=== PATIENT | male | born 1965 | race Caucasian/White ===

== ENCOUNTER 2016-08-28 05:54 | Observation (INO) | payer BC ==
[2016-08-25 09:23] LABS: BASOPHILS 0.3 %; BASOPHILS ABSOLUTE 0.03 10/3/uL (0.0-0.16); EOSINOPHILS 2.4 %; EOSINOPHILS ABSOLUTE 0.25 10/3/uL (0.0-0.53); HEMATOCRIT 43.7 % (40.0-51.0); HEMOGLOBIN 14.5 g/dL (13.6-17.8); IMMATURE GRANULOCYTES 0.4 %; IMMATURE GRANULOCYTES ABSOLUTE 0.04 10/3/uL (0.0-0.11); LYMPHOCYTES 30.3 %; LYMPHOCYTES ABSOLUTE 3.17 10/3/uL (0.67-4.30); MEAN CORPUS HGB CONC 33.2 g/dL (32.0-36.0); MEAN CORPUSCULAR HEMOGLOB 29.7 pg (26.0-34.0); MEAN CORPUSCULAR VOLUME 89.4 fL (80-100); MEAN PLATELET VOLUME 9.9 fL (9.2-13.0); MONOCYTES 6.6 %; MONOCYTES ABSOLUTE 0.69 10/3/uL (0.21-1.20); NEUTROPHILS ABSOLUTE 6.29 10/3/uL (2.02-8.40); PLATELET COUNT 244 10/3/uL (150-400); RBC DISTRIBUTION WIDTH 13.3 % (12.0-16.0); RED CELL COUNT 4.89 10/6/uL (4.7-6.1); WHITE BLOOD CELLS 10.5 10/3/uL (4.5-10.5)
[2016-08-25 09:26] LABS: MANUAL DIFF NO %
[2016-08-25 09:29] LABS: PARTIAL THROMBO TIME 24.1 SEC (22.5-37.2)
[2016-08-25 09:39] LABS: BUN (BLOOD UREA NITROGEN) 17 MG/DL (6-23); CALCIUM, SERUM 8.9 MG/DL (8.5-10.4); CHLORIDE, SERUM 105 MMOL/L (96-112); CO2 (CARBON DIOXIDE) 27 MMOL/L (24-34); CREATININE 0.85 MG/DL (0.70-1.30); GFR AFRICAN AMERICAN 116 ML/MIN (>=60); GFR NON AFRICAN AMERICAN 100 ML/MIN (>=60); GLUCOSE, SERUM 105 MG/DL (60-99); POTASSIUM, SERUM 4.9 MMOL/L (3.5-5.3); SODIUM, SERUM 140 MMOL/L (135-148)
--- NOTE | ~2016-08-28 | OP ---
Record Of Operation [facility] [address] [place]. [address] NAME: JANUARY PHAM : 63 STATUS : REG [facility]#: [id number] AGE: 51 ADM/REG DATE : 08/28/16 MR#: [id number] REPORT SERV DATE: 08/28/16 DICTATED BY: SHEY ANGEL DATE: 08/28/16 REPORT STATUS : Draft TRANSCRIBED BY: MODL DATE: 08/28/16 DATE OF PROCEDURE: 08/28/2016 PREOPERATIVE DIAGNOSIS: Severe obstructive sleep apnea syndrome. POSTOPERATIVE DIAGNOSIS: Severe obstructive sleep apnea syndrome. PROCEDURE PERFORMED: 1. Uvulopalatopharyngoplasty. 2. Tonsillectomy. 3. Septoplasty. 4. Bilateral inferior turbinate reduction. SURGEON: Shey Angel M.D. HAND CLOTH FOLDER: None. ANESTHESIA: General. COMPLICATIONS: None. CONDITION: Stable to recovery. INDICATIONS: A 51-year-old male with severe obstructive sleep apnea syndrome, refractory and intolerant to CPAP therapy. Risks, benefits, and alternatives of the uvulopalatopharyngoplasty with septoplasty and tonsillectomy were explained and he agreed to proceed. PROCEDURE IN DETAIL: The patient was identified in preoperative holding, taken back to the operating room, and placed supine on the operating room table. General anesthesia was established. A time-out was called. The patient and procedure were confirmed. Afrin- soaked pledgets were placed in the inferior middle meatus of the nose and the table were turned for tonsillectomy and palatoplasty. He was prepped and draped in the standard fashion for the procedure. Initial tonsillectomy was performed by grasping the right tonsil retracting it medially. Needle-tip cautery was used to excise the tonsil from the pharyngeal constrictor, achieving hemostasis along the way and leaving mucosal edges at the anterior and posterior edges of the tonsil fossa for closure. The uvula was transected at its base and the left tonsil was excised in a similar fashion. There was significant redundant lateral pharyngeal soft mucosal membrane that was easily advanced to the anterior tonsillar pillar edge with minimal tension. This tightened the lateral pharynx and we came around using 3-0 interrupted chromic sutures due to palatoplasty suturing the posterior and anterior tonsillar pillars and also the anterior and posterior mucosal membrane of the soft palate at the root of the uvula. He had still redundant tissue enough to have it a gentle pressure with the soft palate to the posterior pharynx. When the Irish-Jeremiah mouth gag was relaxed to his oropharynx, there was no bleeding. The anterior tonsillar pillars had been injected prior to the procedure with 1 mL of 1% lidocaine with 1:100,000 epinephrine Record Of Operation [facility] [id number] [place]. [address] NAME: JANUARY PHAM : 63 [place]US : [place] [facility] [place] [id number] AGE: 51 ADM/REG DATE : 08/28/16 MR#: [id number] REPORT SERV DATE: 08/28/16 DICTATED BY: SHEY ANGEL DATE: 08/28/16 REPORT STATUS : Draft TRANSCRIBED BY: NILS DATE: 08/28/16 bilaterally. Septoplasty and turbinate reduction were then performed. Hemitransfixion incision was made on the right side of the nose. Submucoperichondrial envelopes were elevated along the floor of the nose on the left side where there was a large left cartilaginous and bony septal deviation. The right side had no deviations and the mucoperichondrial envelope was entered on the right side 1 cm posterior to the caudal septum as we used a septal knife to cut through the septal cartilage to access the contralateral mucoperichondrial envelope. This envelope was elevated with a [place] elevator. A swivel knife was used to take a section of the quadrangular cartilage out for exposure and then the lower aspect of the cartilage interface and with the maxillary crest and bone on the left side were addressed with a combination of Kerr elevator, Izaguirre elevators, César forceps, and osteotome. We were able to remove the septal spur and cartilaginous deviations. There was additional bony deviation more posteriorly at the level of the middle meatal region. This was excised with undermining and a César forceps and a [place] and a [place] elevator. There was a horizontal perforation on the left septum mucosal membrane from the leading edge of both of the sharp septal spur. These were able to be reapproximated under no tension as we placed the Stern splint, they fell back into normal anatomic position. I did morselize portion of the quadrangular cartilage and replaced it adjacent to the perforation on the left mucoperichondrial envelope. The right mucoperichondrial envelope stayed intact throughout the entire case. Throughout the case, Afrin-soaked pledgets and adrenaline pledgets were used for hemostasis. These were counted at the end of the case and the counts were correct. This hemitransfixion incision was closed with 4-0 chromic suture. Three interrupted stitches. I then performed inferior turbinate reduction. Inferior turbinate reduction was performed at the posterior mid and anterior 3rd of the right inferior turbinate and it was approximately 15 seconds per location on a setting of 6. The left inferior turbinate mainly had the mid and anterior aspects coblated and this was after injection with sterile saline as the inferior turbinate was quite decongested and atrophic. At the end of the case, Stern splints were placed after coating them in Bactroban and they were secured through the columella with 3-0 silk suture. The patient was then handed to Anesthesia for extubation and return to recovery. There were no complications during the case. PH/MODL Shey Angel M.D. / [id number] CC: Shey Angel M.D. Record Of Operation [address] [address] NAME: JANUARY PHAM : 63 STATUS : REG [facility]#: [id number] AGE: 51 ADM/REG DATE : 08/28/16 MR#: [id number] REPORT SERV DATE: 08/28/16 DICTATED BY: SHEY ANGEL DATE: 08/28/16 REPORT STATUS : Draft TRANSCRIBED BY: MODL DATE: 08/28/16 Hardeep Pedersen M.D.
[~2016-08-28 05:54] MED LIST: ADVIL PO; CADUET10 MG/40 M PO; LOTREL1 CA5 PO; NASONEX NAS; NEXIUM40 PO
[2016-08-29] MEDS ORDERED: REST15 PO (14:10)
[2016-08-29] MEDS ORDERED: HYCET 7.5 MG-3473 ML PO (14:11)
[2016-08-29] MEDS ORDERED: ZOFRAN4 PO (14:11)
[2016-08-29] MEDS ORDERED: OCEAN NAS (14:11)
== END 2016-08-29 14:43 | disposition home or self-care (01) ==
LOC: SDC 05:54 → 4SO 14:26
PROVIDERS: Specialist
PROC: 0CTPXZZ Resection of Tonsils, External Approach (ICD-10-PCS; 2016-08-28)
PROC: 09BM0ZZ Excision of Nasal Septum, Open Approach (ICD-10-PCS; 2016-08-28)
PROC: 0CBNXZZ Excision of Uvula, External Approach (ICD-10-PCS; principal; 2016-08-28 07:15)
DX: J35.1 Hypertrophy of tonsils (principal); G47.33 Obstructive sleep apnea (adult) (pediatric); I10 Essential (primary) hypertension; F41.9 Anxiety disorder, unspecified; K21.9 Gastro-esophageal reflux disease without esophagitis; Z87.891 Personal history of nicotine dependence
CPT/HCPCS: 80048; 85025; 85730; 88300; 88304; 93005; 96374; A9270-GY; G0378; J0690; J1170; J2250; J2370; J2405; J2710; J3010